=== PATIENT | male | born 1960 | race Caucasian/White ===

== ENCOUNTER 2017-11-21 06:45 | Inpatient (IN) | payer OTHER ==
[~2017-11-21] VITALS: Ht 167.6 cm; Wt 95.3 kg
[~2017-11-21 06:45] MED LIST: AMBIEN 5 MG TABL5 M1 PO; ASPIR 8181 MG PO; AZITHROMYCIN 2250 MG PO; CARDIZEM CD120 MG PO; CARVEDILOL3.125 MG PO; CLARITIN10 MG PO; CLONIDINE0.1 PO; COREG3.125 MG PO; HYDROCHLOROTH12.5 M1 PO; IBUPROFEN 200200 M1; LEVOFLOXACIN750 MG PO; LISINOPRIL10 MG PO; MUCINEX TA600 MG/TA2 PO; NITROSTAT0.4 M1 SL; NOHOMEMEDICATIONS; NORCO 5-325 TA1 EACH PO; PREDNISONE 20 M20 MG PO; PREDNISONE 5 MG5 MG PO; PRINIVIL20 MG PO; TYLENOL325 MG PO; VENTOLIN HFA 1818 GM INH; ZPAK PO
[2017-11-21 06:54] VITALS: BP 146/96
[2017-11-21] MEDS ORDERED: OMEPRAZOLE20 MG PO (07:00)
[2017-11-21] MEDS ORDERED: HYDRALAZINE 2525 MG PO ×2 (07:00→11:43)
[2017-11-21] MEDS ORDERED: MOBIC15 MG PO (07:01)
[2017-11-21] MEDS ORDERED: FOLBIC RF TABL1 EACH PO ×2 (07:01)
[2017-11-21] MEDS ORDERED: VALIUM5 MG PO (07:02)
[2017-11-21] MEDS ORDERED: COREG3.125 MG PO (07:02)
[2017-11-21] MEDS ORDERED: DILTIAZEM 24HR120 M2 PO (07:02)
[2017-11-21] MEDS ORDERED: LEXAPRO5 MG PO (07:02)
[2017-11-21] MEDS ORDERED: TRAMADOL 50 MG50 MG PO (07:02)
[2017-11-21] MEDS ORDERED: HYDROCHLOROTH12.5 M1 PO (07:02)
[2017-11-21] MEDS ORDERED: GORDO-VITE E15 GM PO (07:03)
[2017-11-21] MEDS ORDERED: ALBUTEROL2.5 MG/31 INH (07:03)
[2017-11-21] MEDS ORDERED: ASPIR 8181 M1 PO (07:03)
[2017-11-21] MEDS ORDERED: CLONIDINE HCL0.3 M3 PO (07:03)
[2017-11-21] MEDS ORDERED: ALBUTEROL2.5 MG/0.1 INH (07:03)
[2017-11-21 07:14] LABS: ABSOLUTE BASOPHILS 0.1 thou/uL (0.0-0.2); ABSOLUTE EOSINOPHILS 0.2 thou/uL (0.0-0.7); ABSOLUTE LYMPHOCYTES 1.9 thou/uL (0.8-5.3); ABSOLUTE MONOCYTES 0.8 thou/uL (0.0-1.2); BASOPHILS 0.9 %; EOSINOPHILS 2.8 %; HEMATOCRIT 45.7 % (42.0-52.0); HEMOGLOBIN 15.5 gm/dL (14.0-18.0); LYMPHOCYTES 27.9 %; MCH 30.7 pg (26.0-34.0); MCHC 33.9 g/dL (28.0-37.0); MCV 90.8 fL (80.0-100.0); MPV 8.1 fl. (7.2-11.1); NUCLEATED RBCS 0 /100WBC; PLATELET COUNT* 233 thou/uL (150-400); POLYS 57.4 %; RBC 5.03 mil/uL (4.50-6.00); RDW-CV 13.5 % (10.5-14.5); WBC 6.9 thou/uL (4.0-11.0)
[2017-11-21 07:21] LABS: ANION GAP 7 mmol/L (7-16); BUN 19 mg/dL (7-18); CALCIUM 9.1 mg/dL (8.5-10.1); CHLORIDE 103 mmol/L (98-107); CO2 31 mmol/L (21-32); CREATININE 1.1 mg/dL (0.6-1.3); GLUCOSE 133 mg/dL (70-99); POTASSIUM 3.7 mmol/L (3.5-5.1); SODIUM 141 mmol/L (136-145)
[2017-11-21 07:25] LABS: INR 1.1
[2017-11-21 07:32] LABS: ALBUMIN 3.6 g/dL (3.4-5.0); ALKALINE PHOSPHATASE 76 U/L (46-116); NT-PRO BRAIN NAT PEPTIDE 25 pg/mL (<300); SGOT 93 U/L (15-37); SGPT 138 U/L (30-65); TOTAL BILIRUBIN 0.5 mg/dL (<0.1-1.0); TOTAL PROTEIN 7.5 g/dL (6.4-8.2); TROPONIN-I LEVEL <0.06 ng/mL (<0.06)
[2017-11-21 08:36] LABS: URINE BILIRUBIN NEGATIVE (Negative); URINE BLOOD NEGATIVE (Negative); URINE CLARITY CLEAR; URINE COLOR YELLOW; URINE GLUCOSE-RANDOM NEGATIVE (Negative); URINE KETONES NEGATIVE (Negative); URINE LEUKOCYTES-REFLEX NEGATIVE (Negative); URINE NITRITE-REFLEX NEGATIVE (Negative); URINE PROTEIN 1+ (Negative); URINE SPECIFIC GRAVITY >= 1.030 (1.005-1.030)
[2017-11-21 08:45] LABS: AMP/METHAMP Negative (Negative); BARBITURATES Negative (Negative); BENZODIAZEPINES POSITIVE (Negative); COCAINE Negative (Negative); METHADONE Negative (Negative); OPIATES Negative (Negative); PCP Negative (Negative); THC Negative (Negative)
[2017-11-21 10:43] VITALS: BP 134/85
[2017-11-21 11:30] VITALS: BP 155/103
[2017-11-21] MEDS ORDERED: B12INJ IM (12:20)
--- NOTE | 2017-11-21 13:51 | EKG ---
[place] [address] ELECTROCARDIOGRAM REPORT Name: MALICK PHELAN Room: [address] ADM IN M.R.#: [id number] Admission: 11/21/17 Attend Phys: Jarvis Reid Discharge: Date of : 62 Report #: [id number] THIS REPORT FOR: //name// [facility] ED Test Date: 2017-11-21 Test Time: 06:52:04 Pat Name: MALICK PHELAN Department: Room: [facility] Gender: M Practice Or Student Teacher: : 1960 Requested By: Kristyn Duggan Order Number: [id number] MD: Froilan Coelho Measurements Intervals [place] Rate: 72 P: -21 [place]: 156 QRS: 22 QRSD: 90 T: 17 QT: 376 QTc: 412 Interpretive Statements Sinus rhythm Compared to ECG 06/05/2015 20:10:52 No significant changes Electronically Signed On 11-21-2017 13:51:19 STATE ARCHIVIST by Froilan Coelho [email or web address] <ELECTRONICALLY SIGNED> By: Froilan Coelho MD, [facility] 11/21/17 1351 D: 01651 1 Froilan Coelho MD, FACC /EPI
[2017-11-21 15:54] VITALS: BP 140/88
--- NOTE | 2017-11-21 15:56 | NUR ---
PT ARRIVED TO ROOM 230 AT APPROX 1130, ADMISSION HX AND ASSESMENT DONE CHARTED. PT A/O X4, C/O CHEST PRESSURE AND LEFT ARM NUMBNESS. NIH DONE, RESULT 0. PT ON RA, SATS 95%. BP 155/103 ALL OTHER VSS. SR ON THE MONITOR. PT HAS CARDIOLOGY CONSULT AND NEUROLOGY. MRI, CAROTID US, CTA DONE TODAY, WAITING ON RESULTS.PT ANXIOUS , ORDER FOR XANEX GIVEN. PT UP AD CLAUDIO IN ROOM. FALL PRECATUIONS IN PLACE, S/O AT BEDSIDE. WILL CONTINUE WITH PLAN OF CARE.
--- NOTE | 2017-11-21 16:58 | 2DMMODE ---
[place] [address] 2 D/M-MODE ECHOCARDIOGRAM Name: MALICK PHELAN Room: [address] IN [facility]#: [id number] Admission: 11/21/17 Attend Phys: Prashant Reyna Discharge: Date of : 62 Date of Service: 11/21/17 1657 Report #: [id number] THIS REPORT FOR: //name// APPROVED REPORT Study performed: 11/21/2017 16:20:50 EXAM: Comprehensive 2D, Doppler, and color-flow Echocardiogram Patient Location: In-Patient Room #: 230 Status: routine BSA: 2.00 HR: 64 bpm BP: 134/85 mmHg Rhythm: NSR Other Information Study Quality: Fair Indications Chest Pain 2D Dimensions LVEF(%): 72.05 (>50%) IVSd: 12.67 (7-11mm) LVOT Diam: 22.80 (18-24mm) LVDd: 39.46 mm PWd: 10.84 (7-11mm) Ascending Ao: 34.02 (22-36mm) LVDs: 23.41 (25-40mm) Aortic Root: 31.93 mm Kang's LVEF: 72.05 % Volumes Left Atrial Volume (Systole) LA ESV Index: 17.50 mL/m2 Aortic Valve AoV Peak Porfirio.: 1.13 m/s AO Peak Gr.: 5.12 mmHg LVOT Max P.45 mmHg AO Mean Gr.: 3.07 mmHg LVOT Mean P.53 mmHg LVOT Max V: 0.93 m/s AO V2 VTI: 20.51 cm LVOT Mean V: 0.56 m/s NASIR (VTI): 3.70 cm2 LVOT V1 VTI: 18.59 cm Mitral Valve E/A Ratio: 1.15 [place] [address] 2 D/M-MODE ECHOCARDIOGRAM Name: MALICK PHELAN Room: [address] IN ..#: [id number] Admission: 11/21/17 Attend Phys: Prashant Reyna Discharge: Date of : 62 Date of Service: 11/21/17 1657 Report #: [id number] MV Decel. Time: 196.83 ms MV E Max Porfirio.: 0.64 m/s MV PHT: 57.08 ms MVA (PHT): 3.85 cm2 TDI E/Lateral E': 5.82 E/Medial E': 7.11 Medial E' Porfirio.: 0.09 m/s Lateral E' Porfirio.: 0.11 m/s Pulmonary Valve PV Peak Porfirio.: 1.21 m/s PV Peak Gr.: 5.89 mmHg Left Ventricle The left ventricle is normal size. There is normal LV segmental wall motion. There is normal left ventricular wall thickness. Left ventricular systolic function is normal. The left ventricular ejection fraction is within the normal range. LVEF is 55-60%. The left ventricular diastolic function is normal. Right Ventricle The right ventricle is normal size. The right ventricular systolic function is normal. Atria The left atrium size is normal. The right atrium size is normal. Aortic Valve The aortic valve is normal in structure. No aortic regurgitation is present. There is no aortic valvular stenosis. Mitral Valve The mitral valve is normal in structure. There is no mitral valve regurgitation noted. No evidence of mitral valve stenosis. Tricuspid Valve The tricuspid valve is normal in structure. Trace tricuspid regurgitation. Pulmonic Valve Pulmonic valve is not well visualized. Trace pulmonic regurgitation. Great Vessels The aortic root is normal in size. [place] [address] 2 D/M-MODE ECHOCARDIOGRAM Name: MALICK PHELAN Room: [address] IN [facility]#: [id number] Admission: 11/21/17 Attend Phys: Prashant Reyna Discharge: Date of : 62 Date of Service: 11/21/17 1657 Report #: [id number] visualized. Pericardium There is no pericardial effusion. <Conclusion> Left ventricular systolic function is normal. The left ventricular ejection fraction is within the normal range. <ELECTRONICALLY SIGNED> By: Harjeet Pappas MD, FACC 11/21/171656 56 56 Harjeet Pappas MD, FAC /INF
--- NOTE | 2017-11-21 19:09 | NUR ---
PT FEELING BETTER THIS EVENING, REVIEWED TEST RESULTS WITH PT. QUESTIONS ANSWERED. PT GIVEN MEDS PER MAR. XANEX GIVEN FOR ANXIETY. PT REQUESTED A PRN BREATHING TX. UP AD CLAUDIO IN ROOM. FALL PRECATUIONS IN PLACE. PT CALLING APPROPRIALTY FOR HELP. WILL CONTINUE TO MONITOR.
[2017-11-21 20:00] VITALS: BP 143/85
[2017-11-22] VITALS (7 sets, daily range): BP systolic 86–124; BP diastolic 54–87
--- NOTE | 2017-11-22 03:53 | NUR ---
PT ALERT ORIENTED. PT STATES MILD CHEST PRESSURE 2/10 SINCE THE DAY BEFORE YESTERDAY. PT REQUESTING LEXAPRO HS. DR FISCHER NOTIFIED. ORDER OBTAINED. LEXAPRO GIVEN HS WITH DIAZEPAM, XANAX, TRAMADOL. APPROX ONE HR LATER PT ASKED RN TO CALL FOR IV BENADRYL ORDER. DR FISCHER DID NOT GIVE BENADRYL ORDER. THIS AM BP 86/54. TELEMETRY SHOWS SR. SLEEPING IN HOSPITAL BED WITH PT.
[2017-11-22 04:06] LABS: GLYCOHEMOGLOBIN (HGB A1C) 5.7 % (4.8-5.6)
[2017-11-22 05:44] LABS: CHOLESTEROL 202 mg/dL (<200); HDL CHOLESTEROL 36 mg/dL (>40); LDL CHOLESTEROL 133 mg/dL (<100); TC:HDL 5.6 Ratio (Not establshd); TRIGLYCERIDE 165 mg/dL (<150); VLDL 33 mg/dL (<40)
[2017-11-22 06:09] LABS: SERUM ASSESSMENT CLEAR
[2017-11-22] MEDS ORDERED: FISH OIL 1,001000 M2 PO (11:29)
--- NOTE | 2017-11-22 17:36 | NUR ---
RECIEVED DISCHARGE ORDERS. PT TO DISCHARGE AFTER MRI IN AFTERNOON AND IF RESULTS ARE NEGATIVE. AFTER RECIEVNIG RESULTS, CALLED AND REVIEWED THEM WITH DR BROWN, HE WANTS PT TO FOLLOW UP WITH HIM IN 1 WEEK. REVIEWED INSTRUCTIONS WITH PT AND HIS , QUESTIONS ASWERED. PTS IV REMOVED, PT TOOK ALL BELONGINGS WITH HIM, LEFT UNIT AT APPROX 1732
--- NOTE | 2017-11-25 08:34 | CON ---
[address] [address] CONSULTATION Name: MALICK PHELAN Room: [address] IN M.R.#: [id number] Admission: 11/21/17 Attend Phys: Jarvis Reid Discharge: 11/22/17 Date of : 62 Report #: [id number] THIS REPORT FOR: //name// CC: Ese Reyna INDICATION: Chest pain. HISTORY OF PRESENT ILLNESS: The patient is a very pleasant 57-year-old with past medical history of a pericardial cyst surgically removed in 2014. Prior to that, he was having some chest pain. Last night at approximately 11:30, he had some crushing midsternal chest discomfort with numbness and tingling in his left arm, weakness in his left hand and blurry vision as well as dizziness. The patient was given a nitroglycerin, ultimately with resolution of his discomfort. Upon awakening this morning, he continued to have about 2/3 chest pain and was brought to the emergency room for further evaluation. 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 He is without other complaint at the time of interview. The pain was midsternal in location without significant radiation. He had some shortness of breath, mild nausea, but no vomiting. The pain was completely relieved last night with nitroglycerin. He is without other cardiac complaint at this time. PAST MEDICAL HISTORY: 1. Pericardial cyst, status post removal in 2014. 2. TIA in 2004. 3. Hypertension. 4. Previous history of tobacco use. 5. Cardiac catheterization in 2014, showed minimal coronary artery disease. 6. Crohn's disease. PAST SURGICAL HISTORY: 1. Left ring finger surgery. 2. Left wrist surgery. 3. Left knee surgery. 4. Right thoracotomy. FAMILY HISTORY: Positive for premature atherosclerotic coronary artery disease. The patient's father of cardiac arrest at age 42. The patient's mother had heart attack at 77. Both his paternal grandparents had heart attacks in their 40s. SOCIAL HISTORY: The patient is . He does not smoke anymore. He quit smoking 6 years ago. He drinks alcohol. ALLERGY AND INTOLERANCE: CODEINE causes nausea and vomiting, MORPHINE causes itching, SULFA causes headache, and ADHESIVE [place] [address] CONSULTATION Name: MALICK PHELAN Room: [address]#: [id number] Admission: 11/21/17 Attend Phys: Jarvis Reid Discharge: 11/22/17 Date of : 62 Report #: [id number] CURRENT MEDICATIONS: Albuterol 1 puff q.4 hours p.r.n., aspirin 81 mg daily, calcium with B6 one tablet daily, carvedilol 3.125 mg b.i.d., clonidine 0.3 mg daily, diazepam 10 mg b.i.d., diltiazem 120 mg daily, Lexapro mg daily, hydralazine 25 mg b.i.d., hydrochlorothiazide 12.5 mg daily, Meloxicam 7.5 mg daily, Nitrostat p.r.n., omeprazole 20 mg daily, tramadol 50 mg q.6 hours, and vitamin E 50 mg daily. REVIEW OF SYSTEMS: A 14-point review of systems is positive for erectile dysfunction, cough with clear sputum, pneumonia, chest pain as outlined above, orthopnea, syncope secondary to orthostasis, seasonal allergies, medical allergies, anxiety and he wears glasses without acute visual change. Otherwise, 14-point review of systems is unremarkable. PHYSICAL EXAMINATION: VITAL SIGNS: Blood pressure 134/85, pulse is 64 and regular. GENERAL: This is a pleasant gentleman who is in no distress. Mood and affect appropriate. HEENT: The patient is wearing glasses. Extraocular muscles are intact. Mucous membranes are moist. NECK: Shows no jugular venous distention. There are no carotid bruits. CHEST: Reveals clear lung castro without wheezes, rales or rhonchi. CARDIAC: Reveals a regular rhythm, normal S1 and S2. I do not appreciate gallop or murmur. ABDOMEN: Reveals normal bowel sounds. The abdomen is soft and nontender. EXTREMITIES: Show no edema. Peripheral pulses 2+ and palpable. SKIN: Warm and dry. A 12-lead EKG shows normal sinus rhythm with no significant ST or T-wave abnormalities. Serial troponins thus far unremarkable. IMPRESSION AND RECOMMENDATIONS: 1. Chest pain. The patient had a nuclear stress test last fall at [facility] is unremarkable. EKG looks normal. Thus far, troponins are unremarkable. We will obtain echocardiogram to further evaluate. I would also like to get a CT of the chest to rule out some form of dissection. If these are all unremarkable, I suspect his pain may be gastroesophageal in nature and may require increased dose of omeprazole. 2. Hypertension, fairly well controlled on multiple medications as outlined above. 3. Family history of premature atherosclerotic coronary artery disease, I [facility] [address] [place] [address] CONSULTATION Name: MALICK PHELAN Room: [address] IN [facility]#: [id number] Admission: 11/21/17 Attend Phys: Jarvis Reid Discharge: 11/22/17 Date of : 62 Report #: [id number] believe he should check a fasting lipid profile and treat for LDL cholesterol less than 100. <ELECTRONICALLY SIGNED> By: Froilan Coelho MD, FACC 11/25/17 0834 1243 1421[facility] Coelho MD, FACC /nt
--- NOTE | 2017-11-27 19:06 | CON ---
[facility] [address] [place] [address] CONSULTATION Name: MALICK PHELAN Room: [address] IN M.R.#: [id number] Admission: 11/21/17 Attend Phys: Jarvis Reid Discharge: 11/22/17 Date of : 62 Report #: [id number] THIS REPORT FOR: //name// CC: Ese Reyna DATE OF SERVICE: 11/21/2017 HISTORY OF PRESENT ILLNESS: This is a 57-year-old male patient who indicates that he started having chest pain. Chest pain was retrosternal. He also had some symptom in the right upper extremity, which is poorly defined. He said the chest pain radiated down to the right arm and there was some associated right arm weakness. The symptoms have resolved. When these symptoms were there, it came spontaneously and there were severe symptoms. REVIEW OF SYSTEMS: Indicate that he had what he described as TIAs in 2004. Basically, he had a passing out spell. [facility] and after he was admitted there and he was going to be dismissed and he had another spell. They did not really do come up with any diagnosis in this patient. He does have a history of anxiety. He has taken Valium for several years. He also has been started on other medications. Does have a history of hypertension. He denies any history of diabetes. Record indicated that one time he had multiple abrasions. He also indicated that he had some cyst at one time in the pericardial area and that caused him a lot of symptom. This was his relevant 14-point review of systems. PAST MEDICAL HISTORY: Positive for TIA but that is very poorly defined history. FAMILY HISTORY: Positive for atherosclerotic disease. SOCIAL HISTORY: He states he does not drink alcohol except occasionally. He is not every day or drink. He does not smoke. PHYSICAL EXAMINATION: NEUROLOGICAL: Indicate he is alert, responsive and able to follow simple and complex command. His speech, concentration, fund of knowledge and memory is at his baseline. Cranial nerve examination 2 through 12 is unremarkable. He has symmetrical strength, sensation, reflexes and tones in all 4 extremities. There is no cerebellar sign. There is no meningeal sign. NECK: There is no carotid bruit. There is no thyroid mass. GENERAL: He is a well-developed individual who does not have any dysmorphic features of eyes, ears and face. HEENT: His vision and hearing looks adequate. EXTREMITIES: His pulses are palpable in the lower extremities and he has no edema, cyanosis or jaundice. CARDIAC: Examination shows unremarkable heart sound [place] [address] CONSULTATION Name: MALICK PHELAN Room: [address] IN ..#: [id number] Admission: 11/21/17 Attend Phys: Jarvis Reid Discharge: 11/22/17 Date of : 62 Report #: [id number] fibrillation. LUNGS: No respiratory difficulty was noticed and no rhonchi noticed on either side. VITAL SIGNS: His blood pressure is 140/88, respirations 17, pulse is 63 and temperature is 97.6. LABORATORY DATA: His WBC count is 6.9. His sodium is normal. His HDL is low at 37. IMPRESSION: It does not look like that the patient's symptoms are neurological in origin. More common etiology will be gastrointestinal because he had trouble with esophagus in the past or cardiac. There is some chance that it can be of thoracic spine pathology. That can be considered if other workup is negative. He also has anxiety and that can also contribute to that but that should be considered only after other causes are excluded. RECOMMENDATIONS: 1. Weight for MRI of the brain. 2. If MRI of the brain is negative, then I will suggest MRI of the thoracic spine. He is claustrophobic but was able to do MRI of the brain with sedation and same sedation can be used tomorrow. 3. If MRI of the thoracic spine is also normal, then I think the chances of this being a neurological in origin is a pretty low. I will discuss this patient with you and follow up this patient with you as necessary. <ELECTRONICALLY SIGNED> By: Mervin Guerrier MD 11/27/17 1906 1623 0824Mervin Guerrier MD /nt
== END 2017-11-22 17:40 | disposition home or self-care (01) | DRG 69 ==
LOC: M.ERS 06:45 → M.TBA-ER 10:05 → M.2W 10:05
PROVIDERS: Emergency Medicine; Internal Medicine; Internal Medicine Cardiovascular Disease; ADMIT Internal Medicine
DX: G45.9 Transient cerebral ischemic attack, unspecified (principal); K50.90 Crohn's disease, unspecified, without complications; I25.110 Atherosclerotic heart disease of native coronary artery with unstable angina pectoris; K21.9 Gastro-esophageal reflux disease without esophagitis; I10 Essential (primary) hypertension; F41.9 Anxiety disorder, unspecified; E78.5 Hyperlipidemia, unspecified; G62.9 Polyneuropathy, unspecified; I73.9 Peripheral vascular disease, unspecified; K75.81 Nonalcoholic steatohepatitis (NASH); Z87.81 Personal history of (healed) traumatic fracture; Z86.73 Personal history of transient ischemic attack (TIA), and cerebral infarction without residual deficits; Z87.442 Personal history of urinary calculi; Z79.899 Other long term (current) drug therapy; Z88.2 Allergy status to sulfonamides; Z88.6 Allergy status to analgesic agent; Z91.041 Radiographic dye allergy status; Z87.891 Personal history of nicotine dependence; Z28.21 Immunization not carried out because of patient refusal; Z82.49 Family history of ischemic heart disease and other diseases of the circulatory system

== ENCOUNTER 2017-11-25 08:43 | Emergency (ER) | payer OTHER ==
[~2017-11-25] VITALS: Ht 167.6 cm; Wt 95.3 kg
[~2017-11-25 08:43] MED LIST changes: +ALBUTEROL2.5 MG/0.1 INH; +ALBUTEROL2.5 MG/31 INH; +ASPIR 8181 M1 PO; +B12INJ IM; +CLONIDINE HCL0.3 M3 PO; +DILTIAZEM 24HR120 M2 PO; +FISH OIL 1,001000 M2 PO; +FOLBIC RF TABL1 EACH PO; +GORDO-VITE E15 GM PO; +HYDRALAZINE 2525 MG PO; +LEXAPRO5 MG PO; +MOBIC15 MG PO; +OMEPRAZOLE20 MG PO; +TRAMADOL 50 MG50 MG PO; +VALIUM5 MG PO
[2017-11-25 09:06] LABS: ABSOLUTE BASOPHILS 0.1 thou/uL (0.0-0.2); ABSOLUTE EOSINOPHILS 0.2 thou/uL (0.0-0.7); ABSOLUTE LYMPHOCYTES 1.9 thou/uL (0.8-5.3); ABSOLUTE MONOCYTES 0.9 thou/uL (0.0-1.2); ABSOLUTE NEUTROPHILS 4.7 thou/uL (1.6-8.1); EOSINOPHILS 1.9 %; HEMATOCRIT 44.8 % (42.0-52.0); HEMOGLOBIN 15.5 gm/dL (14.0-18.0); LYMPHOCYTES 24.1 %; MCH 31.2 pg (26.0-34.0); MCHC 34.7 g/dL (28.0-37.0); MCV 89.9 fL (80.0-100.0); MONOCYTES 11.6 %; MPV 8.1 fl. (7.2-11.1); NUCLEATED RBCS 0 /100WBC; PLATELET COUNT* 227 thou/uL (150-400); POLYS 61.4 %; RBC 4.98 mil/uL (4.50-6.00); RDW-CV 13.3 % (10.5-14.5); WBC 7.7 thou/uL (4.0-11.0)
[2017-11-25 09:14] LABS: INR 1.2; PROTIME 11.3 Seconds (9.20-11.50)
[2017-11-25 09:22] LABS: ALBUMIN 3.6 g/dL (3.4-5.0); ALKALINE PHOSPHATASE 75 U/L (46-116); ANION GAP 6 mmol/L (7-16); BUN 19 mg/dL (7-18); CALCIUM 8.9 mg/dL (8.5-10.1); CHLORIDE 103 mmol/L (98-107); CO2 31 mmol/L (21-32); CREATININE 1.2 mg/dL (0.6-1.3); GLUCOSE 130 mg/dL (70-99); POTASSIUM 4.4 mmol/L (3.5-5.1); SGOT 75 U/L (15-37); SGPT 137 U/L (30-65); SODIUM 140 mmol/L (136-145); TOTAL BILIRUBIN 0.5 mg/dL (<0.1-1.0); TOTAL PROTEIN 7.7 g/dL (6.4-8.2); TROPONIN-I LEVEL <0.06 ng/mL (<0.06)
--- NOTE | 2017-11-25 11:08 | EKG ---
[place] [address] ELECTROCARDIOGRAM REPORT Name: MALICK PHELAN Room: [facility]#: [id number] Admission: 11/25/17 Attend Phys: Discharge: Date of : 62 Report #: [id number] THIS REPORT FOR: //name// [facility] ED Test Date: 2017-11-25 Test Time: 08:49:18 Pat Name: MALICK PHELAN Department: Room: Gender: Construction And Maintenance Inspector: Sudhakar JONES : 1960 Requested By: Al Bauer Order Number: [id number] MD: Hare[employer] Pappas Measurements Intervals [place] Rate: 72 P: 8 [place]: 174 QRS: 13 QRSD: 88 T: 7 QT: 358 QTc: 392 Interpretive Statements Sinus rhythm Compared to ECG 11/21/2017 06:52:04 No significant changes Electronically Signed On 11-25-2017 11:08:17 HYDRAULIC OPERATOR by Harjeet Pappas [email or web address] <ELECTRONICALLY SIGNED> By: Harjeet Pappas MD, [facility] 11/25/17 1108 0849 0849 Harjeet Pappas MD, FACC /EPI
[2017-11-25 12:15] VITALS: BP 118/76
== END 2017-11-25 12:16 | disposition home or self-care (01) ==
LOC: M.ERS 08:43
PROVIDERS: Emergency Medicine Emergency Medical Services
DX: H53.8 Other visual disturbances (principal); R20.0 Anesthesia of skin; I10 Essential (primary) hypertension; J44.9 Chronic obstructive pulmonary disease, unspecified; F10.99 Alcohol use, unspecified with unspecified alcohol-induced disorder; Z86.73 Personal history of transient ischemic attack (TIA), and cerebral infarction without residual deficits; Z88.2 Allergy status to sulfonamides; Z88.5 Allergy status to narcotic agent; Z88.8 Allergy status to other drugs, medicaments and biological substances